=== PATIENT | male | born 1950 | race Caucasian/White ===

== ENCOUNTER → 2020-02-15 | Outpatient (CLI) | payer MEDICARE | END | disposition home or self-care (01) | LOC: LABWHC1 14:16 | PROVIDERS: ATTEND Nurse Practitioner Adult Health | DX: R05 Cough (principal); R50.9 Fever, unspecified | CPT/HCPCS: U0003; C9803 ==

== ENCOUNTER → 2020-06-07 | Outpatient (CLI) | payer MEDICARE ==
--- NOTE | 2020-06-07 12:09 | XR ---
EXAMINATION TYPE: XR lumbar spine 2 or 3V DATE OF EXAM: 06/07/2020 Comparison: None Clinical History: 70-year-old male M54.5 Findings: 5 lumbar type vertebral bodies. Leftward truncal shift may be positional. Vertebral body heights are preserved and alignment is maintained. Advanced hypertrophic facet arthropathy mid to lower lumbar sp ine. Mild endplate spondylosis throughout. Dense apical scarring calcifications abdominal aorta. Impression: 1. Hypertrophic facet arthropathy mid to lower lumbar spine. Mild multilevel degenerative disc diseas e. 2. No vertebral compression collapse or malalignment. 3. Leftward truncal shift could be secondary to positioning or muscle spasm. A scoliosis more superio rly in the spine is also a possibility.
== END | disposition home or self-care (01) ==
LOC: RADXRMAIN 11:28
PROVIDERS: ATTEND Nurse Practitioner Adult Health
DX: M51.36 Other intervertebral disc degeneration, lumbar region (principal); M47.816 Spondylosis without myelopathy or radiculopathy, lumbar region
CPT/HCPCS: 72100

== ENCOUNTER 2020-07-04 10:11 | Day surgery (SDC) | payer MEDICARE ==
[2020-06-24 11:36] VITALS: BMI 26.7
[~2020-07-04 10:11] MED LIST: LACTATED RINGERS 1,000 ML IV SCH; LIDOCAINE 1% (10MG/ML) FOR IV START INTRADERMA PRN
[2020-07-04 10:28] VITALS: TEMP 97.1
[2020-07-04] MEDS ORDERED: LIDOCAINE 1% INJ 10MG/ML (20 ML MDV) ONE (11:17)
[2020-07-04] MEDS ORDERED: fentaNYL (PF) 50 MCG/ML 2 ML AMP ONE (11:17)
[2020-07-04] MEDS ORDERED: PROPOFOL 10 MG/ML 20 ML VIAL IV ONE (11:17)
--- NOTE | 2020-07-04 11:50 | P.PCN ---
Date of Procedure: 07/04/20 Description of Procedure: BRIEF HISTORY: Patient is a 70-year-old male presenting for outpatient colonoscopy for family history of colon cancer. Last colonoscopy 6 years ago. No change in bowel habits or abdominal pain reported. His mother was diagnosed with colon cancer at 69. PROCEDURE PERFORMED: Colonoscopy with polypectomy. PREOPERATIVE DIAGNOSIS: Family history of colon cancer, patient reports last colonoscopy approximately 6 years of. ESTIMATED BLOOD LOSS: Minimal. IV sedation per Anesthesia. PROCEDURE: After informed consent was obtained, the patient, was brought into the endoscopy unit. IV sedation was administered by Anesthesia under continuous monitoring. Digital rectal examination was normal. Initially the Olympus CF-190 flexible video colonoscope was then inserted in the rectum, gradually advanced into the cecum without any difficulty. Careful examination was performed as the scope was gradually being withdrawn. Ileocecal valve and the appendiceal orifice were visualized and appeared normal. Prep was excellent. Mucosa of the cecum, ascending colon, transverse colon, descending colon, sigmoid colon, and rectum appeared normal, except for a few scattered diverticula in the sigmoid colon. A diminutive 1 mm rectal polyp was removed with cold forcep. Retroflexion was performed in the rectum and no lesions were seen. The patient tolerated the procedure well. IMPRESSION: Diminutive rectal polyp removed with cold forceps polypectomy. Mild sigmoid diverticulosis. RECOMMENDATIONS: Findings of this examination were discussed with the patient and his family. Okay to resume diet. Okay to resume medications. Would pathology. Recommend repeat colonoscopy in 5 years for family history of colon cancer.
[2020-07-04 12:15] VITALS: BP 149/88; PULSE 67; RESP 18
== END 2020-07-04 12:50 | disposition home or self-care (01) ==
LOC: ORWHC2ENDO 10:11
PROVIDERS: ATTEND Internal Medicine
DX: Z12.11 Encounter for screening for malignant neoplasm of colon (principal); K62.1 Rectal polyp; K57.30 Diverticulosis of large intestine without perforation or abscess without bleeding; Z80.0 Family history of malignant neoplasm of digestive organs; I10 Essential (primary) hypertension; Z88.1 Allergy status to other antibiotic agents; E78.5 Hyperlipidemia, unspecified; Z87.891 Personal history of nicotine dependence; Z79.82 Long term (current) use of aspirin; Z79.899 Other long term (current) drug therapy; Z98.890 Other specified postprocedural states
CPT/HCPCS: 88305; 45380; J2001; J3010; J2704

== ENCOUNTER → 2021-07-31 | Outpatient (CLI) | payer MEDICARE ==
--- NOTE | 2021-07-31 12:56 | US ---
EXAMINATION TYPE: US carotid duplex BILAT DATE OF EXAM: 07/31/2021 COMPARISON: NONE CLINICAL HISTORY: 71-year-old male G45.9 TIA. TECHNIQUE: Carotid duplex ultrasound examination. Indirect Doppler criteria is visualized. FINDINGS: EXAM MEASUREMENTS: RIGHT: Peak Systolic Velocity (PSV) cm/sec ----- Right CCA: 115.5 ----- Right ICA: 115.5 ----- Right ECA: 184.9 ICA/CCA ratio: 1.0 RIGHT: End Diastole cm/sec ----- Right CCA: 22.9 ----- Right ICA: 18.9 ----- Right ECA: 29.3 LEFT: Peak Systolic Velocity (PSV) cm/sec ----- Left CCA: 117.6 ----- Left ICA: 122.2 ----- Left ECA: 124.5 ICA/CCA ratio: 1.0 LEFT: End Diastole cm/sec ----- Left CCA: 29.3 ----- Left ICA: 33.9 ----- Left ECA: 15.3 VERTEBRALS (direction of flow): Right Vertebral: Antegrade Left Vertebral: Antegrade Rhythm: Normal University Relations Recruiter notes: No significant stenosis seen IMPRESSION: No hemodynamically significant internal carotid artery stenosis on either side. Criteria for Assigning % of Stenosis / Diameter reduction (Estimation based on the indirect measurements of the internal carotid artery velocities (ICA PSV). 1. Normal (no stenosis)=ICA PSV < 125 cm/s: ratio < 2.0: ICA EDV<40 cm/s. 2. Less than 50% stenosis=ICA PSV < 125 cm/s: ratio < 2.0: ICA EDV<40 cm/s. 3. 50 to 69% stenosis=ICA PSV of 125 to 230 cm/s: ration 2.0 ? 4.0: ICA EDV 40-100 cm/s. 4. Greater than 70% stenosis to near occlusion= ICA PSV > 230 cm/s: ratio > 4.0: ICA EDV > 100 cm/s. 5. Near occlusion= ICA PSV velocities may be low or undetectable: variable ratio and ICA EDV. 6. Total occlusion=unable to detect flow.
== END | disposition home or self-care (01) ==
LOC: RADUSWWP 10:40
PROVIDERS: ATTEND Internal Medicine
DX: G45.9 Transient cerebral ischemic attack, unspecified (principal)
CPT/HCPCS: 93880

== ENCOUNTER → 2021-08-07 | Outpatient (CLI) | payer MEDICARE ==
--- NOTE | 2021-08-09 19:37 | ECHOF ---
Referral Reason:G45.9 MEASUREMENTS -------- HEIGHT: 172.7 cm WEIGHT: 80.7 kg BP: RVIDd: 2.8 cm (< 3.3) IVSd: 1.1 cm (0.6 - 1.1) LVIDd: 3.9 cm (3.9 - 5.3) LVPWd: 1.0 cm (0.6 - 1.1) IVSs: 1.6 cm LVIDs: 2.0 cm LVPWs: 1.4 cm LA Diam: 3.2 cm (2.7 - 3.8) LAESV Index (A-L): 21.06 ml/m Ao Diam: 3.1 cm (2.0 - 3.7) AV Cusp: 2.1 cm (1.5 - 2.6) MV EXCURSION: 12.690 mm (> 18.000) MV EF SLOPE: 37 mm/s (70 - 150) EPSS: 0.7 cm MV E Jose Luis: 0.80 m/s MV DecT: 337 ms MV A Jose Luis: 1.03 m/s MV E/A Ratio: 0.78 AR PHT: 1006 ms RAP: 5.00 mmHg RVSP: 31.07 mmHg FINDINGS -------- Sinus rhythm. This was a technically good study. The left ventricular size is normal. There is borderline concentric left ventricular hypertrophy. Overall left ventricular systolic function is normal with, an EF between 60 - 65 %. The right ventricle is normal in size. Normal LA size by volume 22+/-6 ml/m2. The right atrium is normal in size. Interatrial and interventricular septum intact. There is dqne-mx-usmkwojr aortic regurgitation. There is trace mitral regurgitation. Mild tricuspid regurgitation present. Right ventricular systolic pressure is normal at < 35 mmHg. Trace/mild (physiologic) pulmonic regurgitation. The aortic root size is normal. Normal inferior vena cava with normal inspiratory collapse consistent with estimated right atrial pre ssure of 5 mmHg. There is no pericardial effusion. CONCLUSIONS -------- 1. The left ventricular size is normal. 2. There is borderline concentric left ventricular hypertrophy. 3. Overall left ventricular systolic function is normal with, an EF between 60 - 65 %. 4. There is hxig-jc-mcoymowk aortic regurgitation. 5. There is trace mitral regurgitation. 6. Mild tricuspid regurgitation present. 7. Trace/mild (physiologic) pulmonic regurgitation. 8. There is no pericardial effusion. TAILING MACHINE OPERATOR: Sil Figueroa RDCS
== END | disposition home or self-care (01) ==
LOC: RADECHMAIN 11:47
PROVIDERS: ATTEND Internal Medicine
DX: I08.8 Other rheumatic multiple valve diseases (principal)
CPT/HCPCS: 93306

== ENCOUNTER → 2021-08-24 | Outpatient (CLI) | payer MEDICARE ==
--- NOTE | 2021-08-25 05:57 | MR ---
EXAMINATION TYPE: MR angio head wo con DATE OF EXAM: 08/24/2021 COMPARISON: MRI brain June 26, 2021 HISTORY: Abnormal MRI. Pulsatile tinnitus. TECHNIQUE: Time of flight images focusing on the [place] were performed without contrast.. 2-D and 3-D postprocessing imaging is performed on an independent workstation. FINDINGS: A dominant left vertebral artery is redemonstrated. Vertebral arteries are patent to basila r junction. No significant focal stenosis or aneurysmal change in the posterior circulation. Hypoplas tic bilateral posterior communicating arteries are redemonstrated. There is a patent anterior communicating artery. There is no significant focal stenosis or aneurysm i n the anterior circulation. IMPRESSION: No aneurysm at the level of the [place].
== END | disposition home or self-care (01) ==
LOC: RADMRIMAIN 09:14
PROVIDERS: ATTEND Psychiatry & Neurology Neurology
DX: R94.02 Abnormal brain scan (principal)
CPT/HCPCS: 70544

== ENCOUNTER → 2021-09-21 | Outpatient (CLI) | payer MEDICARE ==
--- NOTE | 2021-09-22 05:26 | MR ---
EXAMINATION TYPE: MR brain wo/w con DATE OF EXAM: 09/21/2021 COMPARISON: 06/26/2021 HISTORY: Abnormal MRI CONTRAST: Standard multiplanar, multisequence MRI departmental protocol images were obtained without contrast a nd with 8 mL intravenous Gadavist gadolinium contrast. There is some cerebral cortical atrophy. Diffusion images show no evidence of an acute infarct. There is no mass effect or midline shift. No sign of intracranial hemorrhage. There is multiple scattered foci of increased signal in the white matter of both cerebral hemispheres. Total number is approximat ronnie 30 and these measure up to 1 cm. Brainstem is intact. There is no evidence of orbital mass. The contrast images show no pathologic enhancement. There is normal enhancement of the venous sinuses . The brainstem is intact. No evidence of posterior fossa mass. IMPRESSION: Numerous white matter high signal foci could relate to microvascular ischemia or demyelinating diseas e and overall not significantly different than last exam. There is small nodular focus of enhancement in the left parietal convexity on old exam and is not present on today's exam.
== END | disposition home or self-care (01) ==
LOC: RADMRIMAIN 10:24
PROVIDERS: ATTEND Psychiatry & Neurology Neurology
DX: R93.0 Abnormal findings on diagnostic imaging of skull and head, not elsewhere classified (principal)
CPT/HCPCS: 70553; A9585

== ENCOUNTER 2022-05-29 01:30 | Emergency (ER) | payer MEDICARE ==
[2022-05-29 01:49] VITALS: TEMP 98.8
--- NOTE | 2022-05-29 02:06 | ED ---
Abdominal Pain HPI - General Chief Complaint: Abdominal Pain Stated Complaint: Right side pain Time Seen by Provider: 05/29/22 01:51 Source: patient Mode of arrival: ambulatory Limitations: no limitations - History of Present Illness Initial Comments: Patient is a 72-year-old male presenting to the emergency room with complaints of right upper abdominal pain ongoing for approximately 24 hours. He reports that he contacted his insurance appraiser as to direction of his care in regards to his acute pain that have began over the weekend and they advised him that due to the pain radiating into the epigastric and chest region that was recommended that he come to the emergency room for further evaluation. He reports some occasional nausea with his abdominal pain but denies any vomiting. He is unable to identify any significant aggravating or alleviating factors though upon further discussion does report symptoms are worse after eating. He denies any typical chest pain, shortness of breath, lower abdominal pain, flank pain, hematuria, dysuria, or mental status, weakness, fevers or chills. He is a past medical history significant for hypertension and arthritis. - Related Data Home Medications Medication Instructions Recorded Confirmed Aspirin 81 mg PO DAILY 06/24/20 07/04/20 Baclofen [Lioresal] 20 mg PO HS 06/24/20 07/04/20 Cholecalciferol [Vitamin D3 (25 50 mcg PO DAILY 06/24/20 07/04/20 Mcg = 1000 Iu)] Lovastatin [Mevacor] 40 mg PO DAILY 06/24/20 07/04/20 Multivitamins, Thera [Multivitamin 1 tab PO DAILY 06/24/20 07/04/20 (formulary)] Naproxen Sodium 220 mg PO BID PRN 06/24/20 07/04/20 lisinopriL [Zestril] 10 mg PO DAILY 06/24/20 07/04/20 Cyclobenzaprine [Flexeril] 10 mg PO BID 06/30/20 07/04/20 Meloxicam [Mobic] 15 mg PO DAILY 06/30/20 07/04/20 Allergies Allergy/AdvReac Type Severity Reaction Status Date / Time erythromycin base Allergy Itching Verified 06/30/20 11:26 AND REDNESS OF HAND Review of Systems ROS Statement: Those systems with pertinent positive or pertinent negative responses have been documented in the HPI. ROS Other: All systems not noted in ROS Statement are negative. Past Medical History Past Medical History: Hypertension, Osteoarthritis (OA) History of Any Multi-Drug Resistant Organisms: None Reported Past Surgical History: Hernia Repair Additional Past Surgical History / Comment(s): UMBILICAL HERNIA , RIGHT LEG SURGERY -AGE 3 Past Anesthesia/Blood Transfusion Reactions: Motion Sickness Past Psychological History: ADD/ADHD Smoking Status: Former smoker Past Alcohol Use History: None Reported Past Drug Use History: None Reported - Past Family History Mother Family Medical History: Cancer Additional Family Medical History / Comment(s): COLON CANCER General Exam - General Exam Comments Initial Comments: GENERAL: No acute distress, well developed, well nourished. HEENT: Normocephalic, atraumatic. Pupils equal, round, reactive to light. Moist mucous membranes. LUNGS: No respiratory distress. Clear to auscultation, no adventitious sounds, no use of accessory muscles. HEART: Regular rate and rhythm without murmur, rub, or gallop. ABDOMEN: Normal bowel sounds. Soft, non-distended. RUQ tenderness, mild. No rebound tenderness. BACK: Normal inspection. EXTREMITIES: No edema. No tenderness. Moves all extremities. NEUROLOGIC: Alert & oriented x 3. CN II-XII grossly intact. PSYCHIATRIC: Normal affect and behavior. DERMATOLOGIC: Skin intact, without rashes or lesions noted. Limitations: no limitations Course Vital Signs 05/29/22 05/29/22 01:44 03:50 Temperature 98.8 F Pulse Rate 98 83 Respiratory 12 18 Rate Blood Pressure 166/98 136/79 O2 Sat by Pulse 98 95 Oximetry Medical Decision Making - Medical Decision Making Was pt. sent in by a medical professional or institution (, PA, STORE TEAM MEMBER, urgent care, hospital, or [facility]...) When possible be specific @ -No Did you speak to anyone other than the patient for history (EMS, parent, family, police, friend...)? What history was obtained from this source @ - Did you review nursing and triage notes (agree or disagree)? Why? @ -I reviewed and agree with nursing and triage notes Were old charts reviewed (outside hosp., previous admission, EMS record, old E KG, old radiological studies, urgent care reports/EKG's, [facility] records)? Report findings @ -No old charts were reviewed Differential Diagnosis (chest pain, altered mental status, abdominal pain women, abdominal pain men, vaginal bleeding, weakness, fever, dyspnea, syncope, headache, dizziness, GI bleed, back pain, seizure, CVA, palpatations, mental hea lth)? @ -Differential Abdominal Pain Men: Appendicitis, cholecystitis, diverticulosis, ischemic bowel, pancreatitis, hepatitis, UTI, gastroenteritis, AAA, incarcerated hernia, bowel obstruction, constipation, inflammatory bowel, hepatitis, peptic ulcer disease, splenic infarction, perforated viscus, testicular torsion, this is not meant to be an all-inclusive list EKG interpreted by me (3pts min.). @ -Sinus rhythm nonspecific T-wave abnormality, ventricular rate 83 bpm, MS interval 170 ms, QRS duration 92 ms, QT/QTC 357/397 ms, PRT axes 41, -17, -14 X-rays interpreted by me (1pt min.). @ -None done CT interpreted by me (1pt min.). @ -CT of the abdomen and pelvis demonstrates no free fluid or air in the abdomen. No evidence of gallstones. Small amount of fluid around the gallbladder concerning for cholecystitis. U/S interpreted by me (1pt. min.). @ -None done What testing was considered but not performed or refused? (CT, X-rays, U/S, labs)? Why? @ -Ultrasound considered but deferred due to department currently being closed in no evidence for need for emergent ultrasound and having c2 tactical analysis technician paged for ultrasound. What meds were considered but not given or refused? Why? @ -None Did you discuss the management of the patient with other professionals (professionals i.e. , PA, STORE TEAM MEMBER, lab, RT, psych nurse, nephrology social worker, regional sales representative, teacher, police officer crime prevention, outsole caser)? Give summary @ -No Was smoking cessation discussed for >3mins.? @ -No Was critical care preformed (if so, how long)? @ -No Were there social determinants of health that impacted care today? How? (Homelessness, low income, unemployed, alcoholism, drug addiction, transportation, low edu. Level, literacy, decrease access to med. care, long-term, rehab)? @ -No Was there de-escalation of care discussed even if they declined (Discuss DNR or withdrawal of care, Hospice)? DNR status @ -No What co-morbidities impacted this encounter? (DM, HTN, Smoking, COPD, CAD, Cancer, CVA, ARF, Chemo, Hep., AIDS, mental health diagnosis, sleep apnea, morbid obesity)? @ -None Was patient admitted / discharged? Hospital course, mention meds given and route, prescriptions, significant lab abnormalities, going to OR and other per tinent info. @ -72-year-old presenting to the emergency room at the direction of his insurance for further evaluation due to radiation of his right upper quadrant pain into the epigastric region and describing as chest pain. Patient denies any typical chest pain symptoms. Right upper quadrant pain intermittent and mild at this time. Occasional nausea without vomiting. No other systemic symptoms. Denies any analgesic need. Hemodynamically stable with vital signs and normal limits no indication for need for IV hydration or antibiotic therapy. Will obtain CT of the abdomen along with CBC, CMP, urinalysis, amylase, lipase and EKG. EKG demonstrates sinus rhythm, CT of the abdomen without gallstones or common bile duct dilatation mild amounts of fluid around the gallbladder consistent with mild cholecystitis. WBC slightly elevated at 12.6 likely inflammatory. Hem oglobin normal. CMP stable without electrolyte derailment. Amylase lipase and liver enzymes normal. Urinalysis reveals trace amounts of blood with +2 ketones negative for leukocytes or bacteria. Abdominal pain stable no indication for admission need. Education regarding follow-up with primary care provider for referral to surgeon for further evaluation and treatment for recurrent cholecystitis completed. Questions and concerns answered. Strict return parameters to the emergency room discussed. Will discharge home in stable condition with follow-up with primary care provider for further evaluation and treatment for recurrent cholecystitis. Undiagnosed new problem with uncertain prognosis? @ -No Drug Therapy requiring intensive monitoring for toxicity (Heparin, Nitro, Insulin, Cardizem)? @ -No Were any procedures done? @ -No Diagnosis/symptom? @ -Cholecystitis Acute, or Chronic, or Acute on Chronic? @ -Acute Uncomplicated (without systemic symptoms) or Complicated (systemic symptoms)? @ -Uncomplicated Side effects of treatment? @ -No Exacerbation, Progression, or Severe Exacerbation? @ -No Poses a threat to life or bodily function? How? (Chest pain, [place], [place], pneumonia, PE, COPD, DKA, ARF, appy, cholecystitis, CVA, Diverticulitis, Homicidal, Suicidal, threat to staff... and all critical care pts) @ -No Case discussed with Dr. Morgan. - Lab Data Result diagrams: 05/29/22 01:51 05/29/22 01:51 Lab Results 05/29/22 05/29/22 05/29/22 Range/Units 01:51 01:51 01:51 WBC 12.6 H (3.8-10.6) k/uL RBC 5.40 (4.30-5.90) m/uL Hgb 16.5 (13.0-17.5) gm/dL Hct 46.3 (39.0-53.0) % MCV 85.8 (80.0-100.0) fL MCH 30.6 (25.0-35.0) pg MCHC 35.7 (31.0-37.0) g/dL RDW 12.4 (11.5-15.5) % Plt Count 229 (150-450) k/uL MPV 7.1 Neutrophils % 88 % Lymphocytes % 6 % Monocytes % 4 % Eosinophils % 1 % Basophils % 0 % Neutrophils # 11.0 H (1.3-7.7) k/uL Lymphocytes # 0.7 L (1.0-4.8) k/uL Monocytes # 0.5 (0-1.0) k/uL Eosinophils # 0.2 (0-0.7) k/uL Basophils # 0.1 (0-0.2) k/uL Sodium 137 (137-145) mmol/L Potassium 4.6 (3.5-5.1) mmol/L Chloride 101 (98-107) mmol/L Carbon Dioxide 27 (22-30) mmol/L Anion Gap 9 mmol/L BUN 18 (9-20) mg/dL Creatinine 0.95 (0.66-1.25) mg/dL Est GFR (CKD-EPI)AfAm >90 (>60 ml/min/1.73 sqM) Est GFR (CKD-EPI)NonAf 81 (>60 ml/min/1.73 sqM) Glucose 142 H (74-99) mg/dL Calcium 9.7 (8.4-10.2) mg/dL Total Bilirubin 1.7 H (0.2-1.3) mg/dL AST 29 (17-59) U/L ALT 27 (4-49) U/L Alkaline Phosphatase 79 (38-126) U/L Total Protein 7.7 (6.3-8.2) g/dL Albumin 4.8 (3.5-5.0) g/dL Amylase 50 (30-110) U/L Lipase 65 (23-300) U/L Urine Color Yellow Urine Appearance Clear (Clear) Urine pH 5.5 (5.0-8.0) Ur Specific [place] 1.029 (1.001-1.035) Urine Protein Trace H (Negative) Urine Glucose (UA) Negative (Negative) Urine Ketones 2+ H (Negative) Urine Blood Trace H (Negative) Urine Nitrite Negative (Negative) Urine Bilirubin Negative (Negative) Urine Urobilinogen 2.0 (<2.0) mg/dL Ur Leukocyte Esterase Negative (Negative) Urine RBC 1 (0-5) /hpf Urine WBC 1 (0-5) /hpf Urine Mucus Many H (None) /hpf - Radiology Data Radiology results: report reviewed, image reviewed Disposition Clinical Impression: Acute cholecystitis Disposition: HOME SELF-CARE Condition: Stable Instructions (If sedation given, give patient instructions): Cholecystitis (ED), Low Fat Diet (ED) Additional Instructions: Please follow-up with your primary care provider. Low-fat diet is encouraged. Referral to a general surgeon it for possible cholecystectomy is recommended. Please return to the Emergency Department if symptoms worsen or any other concerns. Is patient prescribed a controlled substance at d/c from ED?: No Referrals: Mikal Vu MD [Primary Care Provider] - 1-2 days Time of Disposition: 03:41
[2022-05-29 02:09] LABS: Basophils # (A) 0.1 k/uL (0-0.2); Basophils % (A) 0 %; Eosinophils # (A) 0.2 k/uL (0-0.7); Eosinophils % (A) 1 %; HCT 46.3 % (39.0-53.0); HGB 16.5 gm/dL (13.0-17.5); Lymphocytes # (A) 0.7 k/uL (1.0-4.8); Lymphocytes % (A) 6 %; MCH 30.6 pg (25.0-35.0); MCHC 35.7 g/dL (31.0-37.0); MCV 85.8 fL (80.0-100.0); Mean Platelet Volume 7.1; Monocytes # (A) 0.5 k/uL (0-1.0); Monocytes % (A) 4 %; Neutrophils % (A) 88 %; Platelet Count 229 k/uL (150-450); RDW 12.4 % (11.5-15.5); WBC 12.6 k/uL (3.8-10.6)
[2022-05-29 02:16] LABS: Appearance,Urine Clear (Clear); Bilirubin,Urine Negative (Negative); Blood,Urine Trace (Negative); Color,Urine Yellow; Glucose,Urine (UA) Negative (Negative); Ketones,Urine 2+ (Negative); Leukocyte Esterase,Urine Negative (Negative); Mucus,Urine Many /hpf; Nitrite,Urine Negative (Negative); PH, Urine 5.5 (5.0-8.0); Protein,Urine Trace (Negative); RBC,Urine 1 /hpf (0-5); Specific Gravity,Urine 1.029 (1.001-1.035); WBC,Urine 1 /hpf (0-5)
[2022-05-29 02:35] LABS: ALT 27 U/L (4-49); AST 29 U/L (17-59); African American GFR (CKD) >90 (>60 ml/min/1.73 sqM); Albumin 4.8 g/dL (3.5-5.0); Alkaline Phosphatase 79 U/L (38-126); Amylase 50 U/L (30-110); Anion Gap 9 mmol/L; Blood Urea Nitrogen 18 mg/dL (9-20); Calcium 9.7 mg/dL (8.4-10.2); Carbon Dioxide 27 mmol/L (22-30); Chloride 101 mmol/L (98-107); Glucose 142 mg/dL (74-99); Lipase 65 U/L (23-300); Non-African American GFR(CKD) 81 (>60 ml/min/1.73 sqM); Potassium 4.6 mmol/L (3.5-5.1); Sodium 137 mmol/L (137-145); Total Bilirubin 1.7 mg/dL (0.2-1.3); Total Protein 7.7 g/dL (6.3-8.2)
--- NOTE | 2022-05-29 03:19 | CT ---
EXAMINATION TYPE: CT abdomen pelvis w con DATE OF EXAM: 05/29/2022 COMPARISON: None HISTORY: RUQ PAIN CT DLP: 1058.3 mGycm Automated exposure control for dose reduction was used. CONTRAST: Performed with IV Contrast, patient injected with 100 mL of Isovue 300. Images obtained from the diaphragm to the floor of the pelvis with IV contrast. There is some mild infiltrate and atelectasis at the posterior lung bases. No pleural effusion. Liver spleen appear intact. There is probably some gallstones. The bile ducts are not dilated. Stomach is intact. There is no evidence of pancreatic mass. Pancreatic duct appears normal. There is no adrenal mass. Kidneys show satisfactory contrast opacification. No hydronephrosis. Ureter s are not dilated. Appendix is medial and posterior and appears normal. Bladder distends smoothly. No inguinal hernia. No free fluid in the pelvis. There are sigmoid diverticula. No diverticulitis. There is no mesenteric edema. No ascites or free air. No sign of a bowel obstruction. The lumbar vertebra have normal alignment. There is vacuum disc at L5-S1. Bony pelvis is intact. The hip joints are intact. IMPRESSION: There is evidence for gallstones. Cholecystitis is possible. Minimal fluid around the gallbladder. No dilated ducts. Normal appendix. Mild atelectasis and interstitial infiltrate at the lung bases.
[2022-05-29 03:51] VITALS: BP 136/79; PULSE 83; RESP 18
== END 2022-05-29 03:52 | disposition home or self-care (01) ==
LOC: EC 01:30
DX: K81.0 Acute cholecystitis (principal); I10 Essential (primary) hypertension; M19.90 Unspecified osteoarthritis, unspecified site; Z87.891 Personal history of nicotine dependence; Z88.1 Allergy status to other antibiotic agents; Z79.82 Long term (current) use of aspirin; Z79.899 Other long term (current) drug therapy
CPT/HCPCS: 36415; 93005; 80053; 82150; 83690; 85025; 81001; 74177; 99284; Q9967

== ENCOUNTER → 2022-12-12 | Outpatient (CLI) | payer MEDICARE ==
--- NOTE | 2022-12-12 17:16 | XR ---
EXAMINATION TYPE: XR mandible complete DATE OF EXAM: 12/12/2022 COMPARISON: None HISTORY: Pain left side TECHNIQUE: 6 view mandible FINDINGS: No acute fractures are evident. Temporomandibular junctions as visualized appear normal. IMPRESSION: 1. Unremarkable mandible
== END | disposition home or self-care (01) ==
LOC: RADXRMAIN 14:55
PROVIDERS: ATTEND Internal Medicine
DX: R68.84 Jaw pain (principal)
CPT/HCPCS: 70110

== ENCOUNTER → 2023-09-03 | Outpatient (CLI) | payer MEDICARE ==
--- NOTE | 2023-09-04 21:07 | XR ---
EXAMINATION TYPE: XR Hip Complete LT DATE OF EXAM: 09/03/2023 COMPARISON: NONE HISTORY: 73-year-old male M54.42 Acute left sided back pain with sciatica TECHNIQUE: 2 views FINDINGS: There is kuhw-rq-sfbosnks degenerative change of the left hip predominantly with marginal s purring. There is an anterior femoral head neck junction osseous excrescence which may have contribut ed to impingement and the only that has developed. No acute fracture, subluxation, dislocation seen. IMPRESSION: Hmka-sa-nevdpkoc left hip OA predominantly with marginal spurring. No acute osseous abnor mality seen.
== END | disposition home or self-care (01) ==
LOC: RADXRMAIN 11:46
PROVIDERS: ATTEND Internal Medicine
DX: M16.12 Unilateral primary osteoarthritis, left hip (principal); M54.42 Lumbago with sciatica, left side
CPT/HCPCS: 73502

== ENCOUNTER → 2024-11-10 | Outpatient (CLI) | payer MEDICARE ==
[2024-11-10 15:01] LABS: Basophils # (A) 0.05 X 10*3/uL (0.00-0.10); Basophils % (A) 1.1 %; Eosinophils # (A) 0.13 X 10*3/uL (0.04-0.35); Eosinophils % (A) 3.0 %; HCT 45.5 % (39.6-50.0); HGB 15.8 g/dL (13.0-17.0); Immature Grans, Automated 0.50 %; Lymphocytes # (A) 0.80 X 10*3/uL (0.90-5.00); Lymphocytes % (A) 18.3 %; MCH 30.4 pg (27.0-32.0); MCHC 34.7 g/dL (32.0-37.0); MCV 87.5 FL (80.0-97.0); Monocytes # (A) 0.37 X 10*3/uL (0.20-1.00); Monocytes % (A) 8.4 %; NRBC Per 100 WBC 0 X 10*3/uL (0.00-0.01); Neutrophils # (A) 3.01 X 10*3/uL (1.80-7.70); Neutrophils % (A) 68.7 %; Platelet Count 318 X 10*3/uL (140-440); RBC 5.20 X 10*6/uL (4.40-5.60); RDW 11.7 % (11.5-14.5); WBC 4.38 X 10*3/uL (4.50-10.00)
[2024-11-10 15:40] LABS: ALT 24 U/L (10-49); AST 23 U/L (14-35); Albumin 4.4 g/dL (3.8-4.9); Albumin/Globulin Ratio 1.69 Ratio (1.60-3.17); Alkaline Phosphatase 88 U/L (41-126); Anion Gap 12.20 mmol/L (4.00-12.00); BUN/Creat Ratio 17.44 Ratio (12.00-20.00); Blood Urea Nitrogen 15.7 mg/dL (9.0-27.0); Calcium 9.5 mg/dL (8.7-10.3); Carbon Dioxide 23.8 mmol/L (21.6-31.8); Chloride 104 mmol/L (96-109); Cholesterol 142.00 mg/dL (0.00-200.00); Globulin 2.6 g/dL (1.6-3.3); Glucose 99 mg/dL (70-110); HDL Cholesterol 50.60 mg/dL (40.00-60.00); LDL Cholesterol,Calculated 76.2 mg/dL (0.0-131.0); Magnesium 2.2 mg/dL (1.5-2.4); PSA Annual Screen 2.160 ng/mL (0.000-4.000); Potassium 4.7 mmol/L (3.5-5.5); Sodium 140 mmol/L (135-145); Total Protein 7.0 g/dL (6.2-8.2); Triglycerides 76.10 mg/dL (0.00-149.00); VLDL Calculation 15.22 mg/dL (5.00-40.00); Vitamin B12 432.0 pg/mL (200.0-944.0)
== END | disposition home or self-care (01) ==
LOC: LABWHC1 12:28
PROVIDERS: ATTEND Internal Medicine
DX: Z00.00 Encounter for general adult medical examination without abnormal findings (principal); Z12.5 Encounter for screening for malignant neoplasm of prostate; E78.5 Hyperlipidemia, unspecified; R41.0 Disorientation, unspecified
CPT/HCPCS: 80061; 80053; 84443; 82533; 82607; 82140; 82746; 83735; 85025; 86780; 36415; G0103